=== PATIENT | female | born 1970 | race Caucasian/White ===

== ENCOUNTER 2022-06-14 15:03 | Emergency (ER) | payer BC ==
[2022-06-14] MEDS ORDERED: Ondansetron PF 4 MG/2 ML Vial ONE (15:38)
[2022-06-14] MEDS ORDERED: Morphine 4 MG/ML VIAL ONE (15:38)
[2022-06-14] MEDS ORDERED: HYDROcodone/Acetaminophen 10/325 mg Tablet ONE (15:48)
== END 2022-06-14 18:50 | disposition home or self-care (01) ==
LOC: NAV ERS 15:03
DX: S82.431A Displaced oblique fracture of shaft of right fibula, initial encounter for closed fracture (principal); E78.5 Hyperlipidemia, unspecified; W19.XXXA Unspecified fall, initial encounter
CPT/HCPCS: 29515; 94760; J2270; J2405